=== PATIENT | male | born 1960 | race Caucasian/White ===

== ENCOUNTER 2019-03-13 08:59 | Day surgery (SDC) | payer OTHER ==
[2019-03-13] MEDS ORDERED: LACTATED RINGERS 1,000 ML IV ONE (09:26)
[2019-03-13] MEDS ORDERED: MIDAZOLAM 2 MG/2 ML VIAL IVP ONE (09:48)
[2019-03-13] MEDS ORDERED: fentaNYL 250 MCG/5 ML VIAL IVP ONE (09:48)
[2019-03-13 10:40] VITALS: BP 116/69
== END 2019-03-13 09:00 | disposition home or self-care (01) ==
LOC: SDS 08:59
PROVIDERS: ATTEND Surgery
PROC: 0DBE8ZX Excision of Large Intestine, Via Natural or Artificial Opening Endoscopic, Diagnostic (ICD-10-PCS; principal; 2019-03-13 10:00)
DX: R19.4 Change in bowel habit (principal); K64.8 Other hemorrhoids; I10 Essential (primary) hypertension; G47.30 Sleep apnea, unspecified; Z85.72 Personal history of non-Hodgkin lymphomas; Z80.9 Family history of malignant neoplasm, unspecified; Z79.82 Long term (current) use of aspirin; Z79.899 Other long term (current) drug therapy

== ENCOUNTER 2020-04-10 13:32 | Outpatient (CLI) | payer OTHER ==
--- NOTE | 2020-04-12 10:48 | MRI Report ---
PROCEDURE: Knee RT W/O INDICATIONS: PAIN IN RT KNEE TECHNIQUE: Noncontrast sagittal PD fast spin echo and T2 fast spin echo with fat saturation, sagittal 3-D gradie nt sequence with fat saturation; coronal T1 spin echo and PD fast spin echo with fat saturation, and axial PD fast spin echo with fat saturation through the knee. COMPARISON: None. FINDINGS: Image quality: Excellent. Menisci: The medial and lateral menisci demonstrate normal morphology and internal signal. The meni scal root ligaments appear intact. Cruciate ligaments: The anterior and posterior cruciate ligaments appear intact. Medial structures: There is low-grade MCL sprain/partial thickness tear. The posterior oblique ligam ent, semimembranosus tendon insertions, and oblique popliteal ligament, and meniscocapsular junction appear intact. Visualized portions of the pes anserinus tendons appear normal. No abnormal bursal f luid. Lateral structures: Low-grade proximal LCL sprain is seen. The popliteus tendon appears normal; the p opliteofibular ligament appears intact. The posterosuperior and anteroinferior popliteomeniscal fasc icles appear intact. The arcuate and fabellofibular ligaments appear intact, around the lateral infe rior geniculate artery. Iliotibial band appears normal. Anterior structures: Susceptibility artifacts are noted anterior to distal quadriceps tendon suggest clinical correlation. Quadriceps tendon is grossly intact. Patellar tendon is intact. Patellar alignm ent is normal. No femoral trochlear dysplasia or ventral trochlear prominence. No edema in the infr apatellar fat pad. Bones and cartilage: No bone marrow contusions or fractures. Mild tricompartmental osteoarthritis an d chondromalacia is seen more prominent in medial femoral tibial compartment and medial portion of pa tellofemoral compartment. Joint space: There is moderate to large amount of joint fluid, no gross intra-articular loose body. Tiny popliteal cyst is seen. Normal appearing synovial plicae are incidentally noted. IMPRESSION: 1. Susceptibility artifacts anterior to the distal quadriceps tendon near its superior patella insert ion, which may represent prior quadriceps tendon repair, suggest clinical correlation. Distal quadric eps tendon and patellar tendon are grossly intact. 2. Low-grade MCL and proximal LCL sprain/partial thickness tear. Cruciate ligaments are intact. 3. No gross focal labral tear. 4. Mild tricompartmental osteoarthritis and chondromalacia more prominent in medial femoral tibial co mpartment and medial portion of patellofemoral compartment. No fracture or dislocation. 5. Moderate to large amount of joint fluid, no gross intra-articular loose body. Tiny popliteal cyst. Nonspecific mild soft tissue edema anterior to patella and patella tendon. Reviewed by: Klaus Montero MD on 04/12/2020 9:46 AM [place] Approved by: Klaus Montero MD on 04/12/2020 9:46 AM [facility] Station ID: [id number]
== END 2020-04-10 13:33 | disposition home or self-care (01) ==
LOC: DI 13:32
PROVIDERS: ATTEND Orthopaedic Surgery
DX: S83.421A Sprain of lateral collateral ligament of right knee, initial encounter (principal); S83.411A Sprain of medial collateral ligament of right knee, initial encounter; M17.11 Unilateral primary osteoarthritis, right knee; M94.261 Chondromalacia, right knee; M71.21 Synovial cyst of popliteal space [Baker], right knee

== ENCOUNTER 2020-06-18 10:01 | Day surgery (SDC) | payer OTHER ==
[~2020-06-18 10:01] MED LIST: VANCOMYCIN INJ 2 GM in SODIUM CHLORIDE 0.9% 500 ML IV ONE
[2020-06-18] MEDS ORDERED: LACTATED RINGERS 1,000 ML IV ONE ×2 (10:20→15:22)
--- NOTE | 2020-06-18 10:47 | ANESTHESIA ---
Pre-Anesthesia VS, & Labs - Diagnosis right knee osteoarthritis - Procedure right knee arthroscopy chondroplasty Height: 5 ft 10 in Weight (kg): 113.4 kg Body Mass Index: 35.9 BMI Classification: Obese - NPO >8 hours Home Medications and Allergies Home Medications: Ambulatory Orders Hydrochlorothiazide 12.5 mg PO DAILY 06/16/20 Losartan [Cozaar] 100 mg PO DAILY 06/16/20 Multivitamin 1 each PO DAILY 06/16/20 Aspirin [Aspirin EC] 325 mg PO DAILY 06/18/20 Aspirin [Aspir 81] 81 mg PO DAILY 04/19/13 Metoprolol Succinate 50 mg PO BID 03/11/19 Hydrochlorothiazide 12.5 mg PO DAILY 06/16/20 Losartan [Cozaar] 100 mg PO DAILY 06/16/20 Multivitamin 1 each PO DAILY 06/16/20 Aspirin [Aspirin EC] 325 mg PO DAILY 06/18/20 Allergies/Adverse Reactions: Allergies Allergy/AdvReac Type Severity Reaction Status Date / Time Penicillins Allergy Severe Respiratory Verified 06/18/20 10:25 lisinopril AdvReac Mild cough Verified 06/18/20 10:25 Anes History & Medical History - Anesthetic History Anesthesia Complications: reports: No previous complications - Medical History Cardiovascular: reports: Hypertension, Other Pulmonary: reports: Sleep apnea, CPAP use Gastrointestinal: reports: None Urinary: reports: None Musculoskeletal: reports: Other Endocrine/Autoimmune: reports: None Skin: reports: None Smoking Status: Never smoker History of Cancer?: Yes (lymphoma had chemo 10 yrs ago) - Surgical History General: reports: Colonoscopy, Other Eyes Ears Nose Throat (EENT): reports: Rhinoplasty Orthopedic: reports: Other Exam General: Alert Dental: WNL Mouth Opening: Greater than 4 Fingerbreadths Neck Mobility: Normal Mallampati classification: II Thyromental Distance: greater than 6 cm Respiratory: Lungs clear Cardiovascular: Regular rate, Normal S1, Normal S2 Plan Anesthesia Type: General Consent for Procedure(s) Verified and Reviewed: Yes Code Status: Attempt Resuscitation ASA classification: 2-Mild systemic disease Is this case an emergency?: No
[2020-06-18] MEDS ORDERED: ONDANSETRON 4 MG/2 ML VIAL IVP PRN ×2 (11:22→15:32)
[2020-06-18] MEDS ORDERED: MORPHINE 2 MG/ML CARPUJECT IVP PRN (11:22)
[2020-06-18] MEDS ORDERED: ATROPINE ABBOJECT 1 MG/10 ML SYRINGE IVP PRN (11:22)
[2020-06-18] MEDS ORDERED: HYDROmorphone 0.5 MG/0.5 ML SYRINGE IVP PRN (11:22)
[2020-06-18] MEDS ORDERED: ePHEDrine 50 MG/ML VIAL IVP PRN (11:22)
[2020-06-18] MEDS ORDERED: METOCLOPRAMIDE 10 MG/2 ML VIAL IVP PRN (11:22)
[2020-06-18] MEDS ORDERED: NALOXONE 0.4 MG/ML VIAL IVP PRN (11:22)
[2020-06-18] MEDS ORDERED: fentaNYL 100 MCG/2 ML VIAL IVP PRN (11:22)
[2020-06-18] MEDS ORDERED: LACTATED RINGERS 1,000 ML IV SCH (12:00)
[2020-06-18] MEDS ORDERED: LIDOCAINE 2%-EPI 1:100000 20 ML MDV ONE (12:15)
[2020-06-18] MEDS ORDERED: EPINEPHrine 1 MG/ML VIAL ONE (12:15)
[2020-06-18] MEDS ORDERED: EPINEPHrine 1 MG/ML AMP IR ONE (12:33)
[2020-06-18] MEDS ORDERED: LIDOCAINE 2%-EPI 1:100000 20 ML MDV SUBQ ONE ×2 (12:33)
[2020-06-18] MEDS ORDERED: PROPOFOL 200 MG/20 ML VIAL IVP ONE (13:15)
[2020-06-18] MEDS ORDERED: MIDAZOLAM 2 MG/2 ML VIAL ONE (13:15)
[2020-06-18] MEDS ORDERED: LIDOCAINE-MPF 2% 5 ML VIAL ONE (13:15)
[2020-06-18] MEDS ORDERED: fentaNYL 100 MCG/2 ML VIAL ONE (13:15)
[2020-06-18] MEDS ORDERED: ONDANSETRON 4 MG/2 ML VIAL ONE (13:37)
[2020-06-18] MEDS ORDERED: DEXAMETHASONE 4 MG/ML VIAL ONE (13:37)
[2020-06-18] MEDS ORDERED: KETOROLAC 30 MG/ML VIAL ONE (13:37)
[2020-06-18] MEDS ORDERED: CLINDAMYCIN 900 MG/50 ML 50 ML IV ONE (13:59)
[2020-06-18] MEDS ORDERED: GLYCOPYRROLATE 1 MG/5 ML VIAL ONE (14:02)
[2020-06-18] MEDS ORDERED: ePHEDrine 50 MG/ML VIAL IVP ONE ×2 (14:05→14:35)
[2020-06-18] MEDS ORDERED: SEVOFLURANE 250 ML LIQUID INH ONE (14:22)
[2020-06-18] MEDS ORDERED: BUPIVACAINE 0.25% PF 30 ML VIAL ONE (15:09)
[2020-06-18] MEDS ORDERED: BUPIVACAINE 0.25% PF 30 ML VIAL SUBQ ONE (15:10)
[2020-06-18] MEDS ORDERED: oxyCODONE 5 MG TABLET PO PRN (15:32)
--- NOTE | 2020-06-18 15:47 | OPERATIVE REPORT ---
Operative Report - Other Other Information/Narrative: Date of Procedure: 18 June 2020 Planned Procedure: Right knee arthroscopy, possible chondroplasty, possible meniscal debridement Pre-op diagnosis: Right knee chondromalacia, knee effusion Procedure performed: Right knee arthroscopy, patellar and medial femoral condyle shaving chondroplasty, lateral meniscal debridement, pathologic medial plica debridement, lateral plica versus adhesions debridement Post-op diagnosis: Right knee patellar and medial femoral condyle chondromalacia, lateral meniscal fraying, pathologic medial plica, pathologic lateral plica versus lateral adhesion Primary Surgeon: ISAIAS GALARZA Secondary Surgeon: Jonh Anesthesia: General LMA EBL: 15ml Tourniquet: Placed high on the right thigh but not inflated Arthroscopic findings right knee: 1. Patella: Diffuse degenerative changes of the patellar cartilage. At the inferior pole of the patella, the cartilage had and flaked off, exposing the subchondral bone. This was debrided with the arthroscopic sucker shaver to a stable rim, with contouring. 2. Trochlea: Diffuse crabmeat type degenerative changes of the trochlear groove, without reanna unstable cartilage flaps 3. Medial Compartment: Degenerative changes of the weightbearing dome of the medial femoral condyle, degenerative changes of the medial side of the medial femoral condyle. These were both debrided to a stable rim using the arthroscopic sucker shaver. The medial meniscal root was intact, the posterior horn, body and anterior horn of the medial meniscus was intact, although there was some hemosiderin staining. Anteriorly, the medial plica inserted in the soft tissues just beyond the meniscocapsular junction, this was debrided with the arthroscopic sucker shaver as part of the plica resection. Following surrounding soft tissue debridement the meniscus was stable to probing. 4. Lateral Compartment: The lateral femoral condyle cartilage was largely intact. There were some degenerative changes cracking and fraying of the lateral tibial plateau. The lateral meniscal root was intact. The posterior horn of the lateral meniscus was intact, however free edge of the the body of the meniscus was frayed. This was debrided with a combination of meniscal biters and the arthroscopic sucker shaver back to a stable rim. 5. ACL and PCL: The ACL and PCL were intact. There was diffuse fraying within the notch and some hyperemic soft tissue anteriorly over the anterior tibial plateau. This was debrided with a combination of the radiofrequency ablation wand and arthroscopic sucker shaver. COMPLICATIONS: none IMPLANTS: None Indications for surgery: 59-year-old male with right knee pain since twisting injury in March 2020. MRI was obtained which did not demonstrate any meniscal pathology, however since that time, he has had debilitating knee pain with concomitant knee effusion. He underwent aspiration and steroid infusion in clinic, with a short but definite improvement in symptoms. His symptoms were worsening, and we had a lengthy discussion about pursuing knee arthroscopy for both diagnostic as well as therapeutic purposes. We discussed that we may perform arthroscopy and not improve his symptoms and he was in agreement with this current risk profile. Further discussed risks, benefits, and alternatives. Risks include pain, bleeding, infection, damage to nearby structures and cartilage, lack of symptom relief, worsening of symptoms, need for further surgery, DVT, PE, stroke, heart attack and . Written consent was obtained. Procedure Details: The patient was met in the pre-operative hold area. We reviewed risks, benefits, and alternatives to surgery. Consent was verified. The patient verified the surgical site as the right knee. The patient then met with anesthesia and was brought back to the operating room. The patient was placed supine on the operating table. A general anesthetic was administered and LMA was placed. A well-padded tourniquet was placed on the right thigh. The right lower extremity was then prepped and draped in the usual sterile fashion. A surgical timeout was then performed. The correct patient, the correct procedure, and the correct surgical site were confirmed by everyone in the room. Perioperative antibiotics had been administered. After surgical timeout 15 mL of 2% lidocaine with epinephrine were injected into the planned portal incision sites as well as into the joint to assist with hemostasis. An 11 blade scalpel was used to make an anteromedial and anterolateral arthroscopic portal. The arthroscope was introduced into the knee and a diagnostic arthroscopy was performed with the above-stated findings. The arthroscopic sucker shaver was inserted into the knee and a chondroplasty of the medial femoral condyle was performed. The cartilage was debrided to a stable rim. After debridement and chondroplasty the the size of the lesion of the weightbearing dome was 15 mm from proximal to distal and 15 mm from medial to lateral. The size of the lesion on the medial portion of the medial femoral condyle is approximately 10 mm x 10 mm. The size of the patellar lesion was approximately 5 mm proximal to distal, and 10 mm medial lateral The lateral meniscus was debrided with a combination of meniscal biters and the arthroscopic sucker shaver as above. The pathologic medial plica and lateral plica versus adhesions were debrided with a combination of meniscal biters, sucker shaver, and radiofrequency ablation wand. Following intra-articular debridement, all excess arthroscopic fluid was run through the knee to help further lavage any loose bodies or residual cytokines. The arthroscopic instruments were then removed from the knee. The portals were closed with 3-0 Monocryl. 0.25% Marcaine plain was injected into the periarticular soft tissues. The incisions were dressed with Xeroform gauze, cotton gauze, and an ABD. the drapes were taken down and a GERARD hose was placed. The patient was awoken from anesthesia, extubated, transferred to the hospital bed, and taken to the PACU for recovery in good condition. Postoperative plan: 1. Discharge home from the same day surgery facility once the patient has met discharge criteria. 2. Advance weightbearing as tolerated, range of motion as tolerated, and wean from crutches as tolerated. 3. Return to clinic in 10-14 days for wound check. 4. Allow advancement of activities as tolerated with full clearance for all activities anticipated in 6-8 weeks postoperatively.
--- NOTE | 2020-06-18 16:05 | ANESTHESIA POST OP EVALUATION ---
Anesthesia Post Eval - Post Anesthesia Eval Vitals: Last Vital Signs Temp 36.0 C L 06/18/20 15:50 Pulse 71 06/18/20 15:59 Resp 15 06/18/20 15:59 BP 145/93 H 06/18/20 15:59 Pulse Ox 95 06/18/20 15:59 CV Function Including HR & BP: Stable Pain Control: Satisfactory Nausea & Vomiting: Negative Mental Status: Baseline Respiratory Status: Airway Patent Hydration Status: Satisfactory Anesthesia Complications: None
[2020-06-18 16:06] VITALS: BP 152/89
== END 2020-06-18 10:02 | disposition home or self-care (01) ==
LOC: SDS 10:01
PROVIDERS: ATTEND Orthopaedic Surgery
DX: M94.261 Chondromalacia, right knee (principal); M17.11 Unilateral primary osteoarthritis, right knee; M25.461 Effusion, right knee; E66.9 Obesity, unspecified; Z68.35 Body mass index [BMI] 35.0-35.9, adult; I10 Essential (primary) hypertension; G47.30 Sleep apnea, unspecified
CPT/HCPCS: 29881; J0171; J3370; J3490; J7120

== ENCOUNTER 2023-06-19 10:24 | Outpatient (CLI) | payer OTHER ==
--- NOTE | 2023-06-19 10:53 | CARDIAC PROCEDURE NOTE ---
Stress Test Report Service Date: 06/19/23 Service Time: 11:00 Ordering Provider: Gwendolyn Marquez NP Indication for Test: Assess chest discomfort. Significant Medical History: Zain is referred for an ETT today to assess symptoms that include right ear pain, with radiation downward to his upper chest, occurring with strenuous walking (his 9-month old [place] [employer]), and more likely when walking in the cold. He denies associated diaphoresis and GI symptoms and notes resolution either with decreasing the intensity of his walking (usually) or sometimes requiring full resting, in which case symptoms resolve typically within about 5 minutes. 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 He reports having had difficult to control BP, that was much more stable after the initiation of CPAP for LC a couple of years ago. Metoprolol succinate was added to his baseline regimen of losartan/HCTZ for further improvement, and per our recommendation he has not taken it for 48 hours. Cardiac Risk Factors: Positive for hypertension (treated for 25+ years, with reported good control recently) and family history of CAD (in father in early 60's); has a positive modifying factor (LC on CPAP) but no known history of hyperlipidemia, diabetes or tobacco smoking. Type of Stress Test: Exercise Treadmill Test (ETT) Procedure: -Exercise Treadmill Test- After signing informed consent, the patient performed treadmill exercise using a Jadiel protocol. The patient exercised for 8 minutes 54 seconds and achieved a peak heart rate of 148 (92 percent predicted maximum heart rate for age), and an estimated workload of 10.2 METS. The test was terminated due to fatigue/shortness of breath. Resting heart rate: 58 Peak heart rate: 148 Normal response to exercise. Resting BP: 166/93 Peak BP: 178/82 (during exercise) then 199/65 (in Recovery) Hypertensive at rest with physiologic BP response to exercise. Room air oxygen saturation ranged between 93-97% during the study. Rhythm during exercise: Sinus rhythm throughout, without ectopy noted. Symptoms: He experienced mild right ear aching in early stage III, rated 2-3/10 in intensity, without chest radiation, varying in intensity but still present in Recovery. He was administered a SL NTG tablet while seated and reported full resolution of the discomfort 2-3 minutes later. EKG at rest showed sinus bradycardia, with borderline CO prolongation, probable left atrial abnormality and incomplete right bundle branch block QRS morphology. EKG at peak stress showed horizontal ST depression just meeting significance criteria for ischemia of 1 mm, in leads V4 & V5. In Recovery HR rapidly/normally decreased with slower decline in BP (HR 98, BP 1 65/75 at 5:00). No imaging was ordered with this stress test. I, Sammy Talamantes MD, was present throughout this treadmill stress study and supervised it in its entirety. Summary: 1) Exercise tolerance about average for age and sex as evidenced by LUH of -2%. 2) Borderline resting EKG with interpretable ST/T pattern. 3) Adequate level of exercise was achieved on this treadmill stress test. 4) Hypertensive at rest with normal incremental BP response to exercise. 5) Borderline ischemic changes by EKG criteria were seen at peak stress. 6) No imaging was ordered with this test. Conclusions and Recommendations: 1) The combination of recreation of Stuart's exertional symptom (right ear pain) with borderline ST depression and subsequent apparent benefit with SL NTG administration, likely indicates the presence of flow-limiting coronary stenosis/es. 2) I would recommend that he: be started on an intermediate dose of either atorvastatin or rosuvastatin (ie 20 or 10 mg daily, respectively); increase his daily dose of metoprolol to 100 mg; continue daily 81 mg ASA, and receive a prescription for SL NTG for prn use. We discussed how he should use the latter and parameters for calling 911 if no relief after 2 doses, in the setting of a significant pain episode. 3) I would also recommend that he be referred for formal Cardiology evaluation, for assessment of his response to the above interventions and potentially additional assessment, especially if symptoms persist or worsen.
[2023-06-19] MEDS ORDERED: NITROGLYCERIN SL 0.4 MG TABLET SL ONE (13:08)
== END 2023-06-19 10:25 | disposition home or self-care (01) ==
LOC: DI 10:24
PROVIDERS: ATTEND Nurse Practitioner Family
DX: R07.9 Chest pain, unspecified (principal); I10 Essential (primary) hypertension; Z82.49 Family history of ischemic heart disease and other diseases of the circulatory system; G47.33 Obstructive sleep apnea (adult) (pediatric); R94.31 Abnormal electrocardiogram [ECG] [EKG]
CPT/HCPCS: 93017; A9270